=== PATIENT | female | born 1945 | race African-American/Black ===

== ENCOUNTER 2017-04-07 07:53 | Emergency (ER) | payer OTHER ==
[~2017-04-07] VITALS: Ht 167.6 cm; Wt 79.8 kg
[~2017-04-07 07:53] MED LIST: ASPIRIN EC81 M1 PO; HYDROCHLOROTHIA25 M1 PO; LIPITOR40 M1 PO; METFORMIN HCL500 M3 PO; NEXIUM 40MG40 MG PO; PREDNISONE10 MG PO; ZETIA10 M1 PO
[2017-04-07 08:00] VITALS: BP 181/82
[2017-04-07] MEDS ORDERED: LOSARTAN POTASS50 M1 PO (08:24)
[2017-04-07] MEDS ORDERED: PANTOPRAZOLE SO40 M1 PO (08:24)
--- NOTE | 2017-04-07 08:49 | ED EYE COMPLAINT ---
History of Present Illness General Chief Complaint: Eye Problems Stated Complaint: SWOLLEN LT EYE Source: patient Exam Limitations: no limitations Vital Signs & Intake/Output Vital Signs & Intake/Output ED Intake and Output 04/08 0000 04/07 1200 Intake Total Output Total Balance Patient 176 lb Weight Allergies Coded Allergies: iodine (SWELLS 04/07/17) Uncoded Allergies: SEAFOOD (Intermediate, HIVES 04/07/17) Reconcile Medications Aspirin (Ecotrin*) 81 MG TABLET.DR 1 TAB PO DAILY HEART HEALTH (Reported) Atorvastatin Calcium (Lipitor) 40 MG TABLET 1 TAB PO DAILY CHOLESTEROL ( Reported) Erythromycin Base (Erythromycin) 5 MG/GRAM (0.5 %) OINT...G. 1 AIME OS TID Conjunctivitis apply 1 cm ribbon into the lower conjunctival sac Ezetimibe (Zetia) 10 MG TABLET 1 TAB PO DAILY CHOLESTEROL (Reported) Hydrochlorothiazide 25 MG TABLET 1 TAB PO DAILY HTN (Reported) Losartan Potassium 50 MG TABLET 1 TAB PO DAILY HEART (Reported) Metformin HCl 500 MG TABLET 1 TAB PO DAILY DIABETES (Reported) Pantoprazole Sodium 40 MG TABLET.DR 1 TAB PO DAILY GI (Reported) Tetrahydrozoline HCl (Opti-Clear) 0.05 % DROPS 2 DROP OP BID Keratoconjunctivitis Triage Note: PT STATES THAT FOR THE PAST 2 DAYS SHE HAS BEEN HAVING L EYE PAIN, STATES THAT SHE WOKE WITH HER EYELID SWOLLEN 2 DAYS AGO AND COULDN'T OPEN HER EYE, YESTERDAY IT STARTED TO DRAIN A LITTLE AND TODAY SWELLING AND PAIN IS MUCH LESS Triage Nurses Notes Reviewed? yes HPI: Ms Goldberg is a 71 year old female with a history of hypertension and diabetes who presented to the emergency department this morning because of left eye discomfort. Patient states that her symptoms started approximately 48 hours ago. She states that she was unable to open her left eye as it was swollen shut, She states that this could be due to an allergy which she previously has a history of. Patient states that she took some Benadryl and has noted that her symptoms have improved. Patient did state that over the last 24 hours she has noticed a drainage coming from her left eye. Drainage is described as clear and occasionally the patient has had a sensation where she feels her eye is sticky and she has had some crusting over the left eye. She ensorses no vision changes or vision abnormalities. Denies any pain with eye movements. This morning the patient endorses mild pain. Rated a 1 out of 10. Described as a burning sensation. She denies any fever, chills, nausea, vomiting. She does follow up with an transformer tester for routine eye work owing to a history of diabetes. (BUNNY MONTANO MD) Past History Travel History Traveled to [place] past 21 day No Medical History Any Pertinent Medical History? none Neurological: NONE EENT: NONE Cardiovascular: hypertension, hyperlipidemia Respiratory: NONE Gastrointestinal: NONE Hepatic: NONE Renal: NONE Musculoskeletal: NONE Psychiatric: NONE Endocrine: NONE Blood Disorders: NONE Cancer(s): NONE ASSESSMENT SERVICES MANAGER/Reproductive: NONE Tetanus Vaccine: 01/24/12 Surgical History Surgical History: none Psychosocial History Tobacco Use: Never used ETOH Use: denies use Illicit Drug Use: denies illicit drug use Family History Hx Contributory? No (BUNNY MONTANO MD) Review of Systems Review of Systems Constitutional: Denies: chills, diaphoresis, fever, malaise, weakness. Eyes: Reports: drainage, pain. Denies: blindness, blurred vision, decreased acuity, foreign body sensation, inflammation, photophobia, previous injury, shadows, tunnel vision, vision change, contact lenses. (BUNNY MONTANO MD) Physical Exam General Appearance: well developed/nourished, alert, awake General Inspection: normal inspection, periorbital swelling, Mild Crusting noted , left eye lid. Eyelid: normal inspection Conjunctiva/Sclera: normal inspection Cornea: normal inspection EOM: intact Pupil: normal accommodation, normal pupil, PERRL Anterior Chamber: normal inspection General Inspection: normal inspection Eyelid: everted for exam Conjunctiva/Sclera: normal inspection Cornea: normal inspection EOM: intact Pupil: normal accommodation, PERRL Anterior Chamber: normal inspection Posterior Segments: normal funduscopic Physical Exam Head: atraumatic Nose: normal inspection Cardiovascular/Respiratory: normal breath sounds Gastrointestinal: NB+. Non Tender (BUNNY MONTANO MD) Progress Differential Diagnosis: corneal abrasion, conjunctivitis, detached retina Plan of Care: Normal saline ophthalmic solution. Erythromycin drops for the next 24-48 hours. (BUNNY MONTANO MD) Departure Departure Disposition: HOME OR SELF CARE Condition: Stable Clinical Impression Primary Impression: Conjunctivitis Referrals: Twyla MARTÍNEZ MD (PCP/Family) Additional Instructions: Please follow-up with your primary care physician in the next 7 days. Please inform your PCP that you were seen at the emergency department this morning. Inform your primary care physician of the treatment administered to you today. Please follow-up with the transformer tester the next 24-48 hours. Should you experience worsening pain, discharge, vision loss or any swelling of your eyes where you cannot open or close them please come back to the emergency department. Please use antibiotics as per prescribed. Should you notice that your symptoms have resolved the next 24-48 hours you can discontinue these. Use warm compresses to the eye every 8-12 hours. Avoid any foods that she may be allergic to. You may use antihistamine medications as needed. Departure Forms: Customer Survey General Discharge Information Prescriptions: Current Visit Scripts Tetrahydrozoline HCl (Opti-Clear) 2 DROP OP BID #1 BOT Erythromycin Base (Erythromycin) 1 AIME OS TID #3.5 GM apply 1 cm ribbon into the lower conjunctival sac (DUSTY DIETZ,BUNNY) Resident Co-Sign Statement Statement: ED Attending supervision documentation- [X] I saw and evaluated the patient. I have also reviewed all the pertinent lab results and diagnostic results. I agree with the findings and the plan of care as documented in the Resident's documentation. [X] I have reviewed the ED Record and agree with the Resident's documentation. [] Additions or exceptions (if any) to the Resident's note and plan are summarized below: [] (ASHLIE DIETZ,JOSE GUADALUPE)
[2017-04-07] MEDS ORDERED: ERYTHROMYCIN1 GM OS (09:01)
[2017-04-07] MEDS ORDERED: OPTI-CLEAR15 ML OP (09:01)
== END 2017-04-07 09:07 ==
LOC: ERH 07:53
DX: H10.9 Unspecified conjunctivitis (principal)